=== PATIENT | female | born 1970 | race African-American/Black ===

== ENCOUNTER 2022-09-22 15:23 | Inpatient (IN) | payer OTHER ==
[~2022-09-22] VITALS: Ht 170.2 cm; Wt 102.5 kg
[2022-09-22] MEDS ORDERED: MAGNESIUM/ALUMINUM HYDROXIDE/SIMETHICONE 30ML UDC PO ONE (20:30)
[2022-09-22] MEDS ORDERED: VISCOUS LIDOCAINE 2% 15 ML UDC MM ONE (20:30)
[2022-09-22] MEDS ORDERED: DEXT 5%/0.9% NACL 1,000 ML IV ONE (23:30)
[2022-09-22 23:38] LABS: BASOPHILS % 0.4 % (0.0-2.0); EOSINOPHILS % 2.5 % (0.0-5.0); HEMATOCRIT. 42.8 % (36.0-48.0); HEMOGLOBIN. 14.3 g/dL (12.0-16.0); LYMPHOCYTES % 40.5 % (20.0-50.0); MEAN CORPUSCULAR HEMOGLOBIN 30.3 pg (28.0-32.0); MEAN CORPUSCULAR VOLUME 90.9 fL (81.0-99.0); MEAN PLATELET VOLUME 9.2 fl (7.4-10.4); MONOCYTES % 5.2 % (2.0-8.0); NEUTROPHILS % 51.4 % (40.0-76.0); PLATELET 274 x1000/uL (130-400); RED BLOOD CELL COUNT 4.71 mill/uL (4.2-5.4); RED CELL DISTRIBUTION WIDTH 14.1 % (11.6-14.6)
[2022-09-22 23:58] LABS: CHLORIDE 108 mEq/L (98-107)
[2022-09-23] MEDS ORDERED: CLONIDINE 0.1MG TABLET PO PRN (02:45)
[2022-09-23] MEDS ORDERED: DEXT 5%/0.45% NACL 1000ML 1,000 ML IV SCH (02:45)
[2022-09-23] MEDS ORDERED: ACETAMINOPHEN 325MG TABLET PO PRN ×2 (02:45)
[2022-09-23 03:47] VITALS: BP 124/76
[2022-09-23 06:38] LABS: INR 1.1; PROTHROMBIN TIME 11.5 sec (9.6-11.0)
[2022-09-23 07:12] LABS: BASOPHILS % 0.3 % (0.0-2.0); EOSINOPHILS % 2.8 % (0.0-5.0); HEMOGLOBIN. 12.2 g/dL (12.0-16.0); LYMPHOCYTES % 37.8 % (20.0-50.0); MEAN CORPUSCULAR HEMOGLOBIN 29.9 pg (28.0-32.0); MEAN CORPUSCULAR VOLUME 90.9 fL (81.0-99.0); MEAN PLATELET VOLUME 9.2 fl (7.4-10.4); MONOCYTES % 8.4 % (2.0-8.0); NEUTROPHILS % 50.7 % (40.0-76.0); PLATELET 238 x1000/uL (130-400); RED BLOOD CELL COUNT 4.07 mill/uL (4.2-5.4); RED CELL DISTRIBUTION WIDTH 13.8 % (11.6-14.6)
[2022-09-23 08:00] VITALS: BP 115/68
[2022-09-23] MEDS ORDERED: FAMOTIDINE 20MG/2ML VIAL IV SCH (09:00)
[2022-09-23 10:13] LABS: CHLORIDE 111 mEq/L (98-107)
[2022-09-23 10:41] LABS: HDL CHOLESTEROL 50 mg/dL (40-59); LDL CHOLESTEROL 81 mg/dL (5-100)
[2022-09-23 12:00] VITALS: BP 110/64
[2022-09-23] MEDS ORDERED: PROPOFOL 200MG/20ML VIAL IV ONE (13:26)
[2022-09-23] MEDS ORDERED: MAGNESIUM/ALUMINUM HYDROXIDE/SIMETHICONE 30ML UDC PO PRN (14:15)
[2022-09-23] MEDS ORDERED: MYL30 PO (15:35)
[2022-09-23 17:01] VITALS: BP 108/60
== END 2022-09-23 17:30 | disposition home or self-care (01) | DRG 395 ==
LOC: ER 15:23 → MICUSO 23:50 → 6EST 09-23 02:38
PROVIDERS: ADMIT Hospitalist; ATTEND Hospitalist
PROC: 0DC58ZZ Extirpation of Matter from Esophagus, Via Natural or Artificial Opening Endoscopic (ICD-10-PCS; principal; 2022-09-23)
DX: T18.108A Unspecified foreign body in esophagus causing other injury, initial encounter (principal); K22.2 Esophageal obstruction; K44.9 Diaphragmatic hernia without obstruction or gangrene; Z20.822 Contact with and (suspected) exposure to COVID-19; R13.10 Dysphagia, unspecified; R74.01 Elevation of levels of liver transaminase levels; Z88.0 Allergy status to penicillin; Z98.84 Bariatric surgery status; X58.XXXA Exposure to other specified factors, initial encounter; Y93.89 Activity, other specified; Y92.89 Other specified places as the place of occurrence of the external cause; Y99.8 Other external cause status
CPT/HCPCS: 36415; 70360; 71045; 80053; 80061; 84443; 85025; 87426; 93005; 99285; C9803; J2704; J3490

== ENCOUNTER 2023-12-13 19:42 | Emergency (ER) | payer OTHER ==
[~2023-12-13] VITALS: Ht 170.2 cm; Wt 100.0 kg
[~2023-12-13 19:42] MED LIST: MYL30 PO
[2023-12-13 19:47] VITALS: TEMP 98; O2SAT 100
[2023-12-13] MEDS ORDERED: LIDO700A15 TP (21:03)
[2023-12-13] MEDS ORDERED: NAPR-1176 MT (21:03)
[2023-12-13] MEDS: KETOROLAC 15MG/ML VIAL IM ONE (21:55)
[2023-12-13 22:03] VITALS: BP 136/67; PULSE 79; RESP 14
== END 2023-12-13 22:05 | disposition home or self-care (01) ==
LOC: ER 19:42
DX: M75.21 Bicipital tendinitis, right shoulder (principal); Z98.51 Tubal ligation status; Z98.890 Other specified postprocedural states; Z90.49 Acquired absence of other specified parts of digestive tract; Z88.0 Allergy status to penicillin; Z88.5 Allergy status to narcotic agent
CPT/HCPCS: 73030; 96372; 99283; J1885; Z7610; A4565